=== PATIENT | male | born 1950 | race Caucasian/White ===

== ENCOUNTER 2021-02-14 21:15 | Emergency (ER) | payer OTHER ==
[~2021-02-14] VITALS: Ht 177.8 cm; Wt 100.0 kg
[2021-02-14] MEDS ORDERED: METFORMIN HCL500 M1 PO (21:44)
[2021-02-14] MEDS ORDERED: LEVOTHYROXIN50 MCG PO (21:45)
[2021-02-14] MEDS ORDERED: AMLODIPINE BESY10 MG PO (21:45)
[2021-02-14] MEDS ORDERED: LISINOPRIL20 MG PO (21:46)
[2021-02-14] MEDS ORDERED: POT CHLORIDE10 ME5 PO (21:46)
[2021-02-14] MEDS ORDERED: LIPITOR10 M1 PO (21:47)
[2021-02-14] MEDS ORDERED: TAMSULOSIN HCL0.4 MG PO (21:47)
[2021-02-14 23:40] VITALS: BP 156/82
== END 2021-02-14 23:40 | disposition home or self-care (01) | DRG 918 ==
LOC: ED 21:15
DX: T63.461A Toxic effect of venom of wasps, accidental (unintentional), initial encounter (principal); L50.0 Allergic urticaria

== ENCOUNTER 2023-01-23 09:43 | Emergency (ER) | payer OTHER ==
[~2023-01-23] VITALS: Ht 177.8 cm; Wt 81.0 kg
[~2023-01-23 09:43] MED LIST: AMLODIPINE BESY10 MG PO; LEVOTHYROXIN50 MCG PO; LIPITOR10 M1 PO; LISINOPRIL20 MG PO; METFORMIN HCL500 M1 PO; POT CHLORIDE10 ME5 PO; TAMSULOSIN HCL0.4 MG PO
[2023-01-23 09:51] VITALS: BP 144/94
[2023-01-23 10:09] VITALS: BP 127/71
[2023-01-23 10:17] LABS: BASO% 0.7 % (0-3); EOS% 3.5 % (0-8); HEMATOCRIT 43.2 % (39.0-50.0); HEMOGLOBIN 14.9 g/dl (14.0-18.0); IMMATURE GRANULOCYTES 0.5 % (0.0-5.0); LYMPH% 19.7 % (15-41); MEAN CELL VOLUME 84.2 fL CALC (80.0-100.0); MEAN CORPUSCULAR HGB CONC 34.5 g/dL CAL (32.0-36.0); MONO% 7.5 % (2-13); NEUT# 5.97 thou/uL (1.82-7.42); NEUT% 68.1 % (42-76); RED BLOOD COUNT 5.13 mill/uL (4.70-6.10); RED CELL DISTRI WIDTH 13.3 % (11.5-15.5)
[2023-01-23 10:23] LABS: ALBUMIN 4.7 g/dL (3.2-5.0); ALKALINE PHOSPHATASE 66 u/l (38-126); ANION GAP 14 (6-22 (CALC)); BILIRUBIN, TOTAL 0.9 mg/dL (0.2-1.3); BUN 17 mg/dL (8-23); BUN/CREATININE RATIO 21 (12-20 (CALC)); CARBON DIOXIDE 28 mmol/l (22-30); CHLORIDE 103 mmol/l (95-108); CREATININE 0.8 mg/dL (0.7-1.3); GFR FOR AFR.AMER. > 60 ML/MIN (>=60 (CALC)); GFR OTHER RACES > 60 ML/MIN (>=60 (CALC)); POTASSIUM 3.2 mmol/l (3.5-5.1); SGOT/AST 35 u/l (19-48); SODIUM 141 mmol/l (137-146); TOTAL PROTEIN 7.4 g/dL (6.3-8.2)
[2023-01-23 11:01] VITALS: BP 126/69
[2023-01-23 11:32] VITALS: BP 134/69
[2023-01-23] MEDS ORDERED: AVODART0.5 MG PO (11:33)
[2023-01-23] MEDS ORDERED: METOPROLOL TART75 MG PO (11:34)
[2023-01-23] MEDS ORDERED: MECLIZINE 2525 MG PO (11:57)
[2023-01-23 12:43] VITALS: BP 134/69
== END 2023-01-23 13:08 | disposition home or self-care (01) | DRG 149 ==
LOC: ED 09:43
PROVIDERS: Family Medicine
DX: H81.11 Benign paroxysmal vertigo, right ear (principal); I10 Essential (primary) hypertension; E11.9 Type 2 diabetes mellitus without complications; Z79.84 Long term (current) use of oral hypoglycemic drugs